=== PATIENT | male | born 1980 | race Two or more races ===

== ENCOUNTER 2021-10-11 18:14 | Emergency (ER) | payer OTHER ==
[~2021-10-11] VITALS: Ht 172.7 cm; Wt 87.1 kg
[2021-10-11] MEDS ORDERED: LOSARTAN-HCTZ1 EAC2 PO (18:26)
== END 2021-10-11 19:14 | disposition home or self-care (01) ==
LOC: ER 18:14
DX: S68.022A Partial traumatic metacarpophalangeal amputation of left thumb, initial encounter (principal); W26.0XXA Contact with knife, initial encounter; Y93.9 Activity, unspecified; Y92.9 Unspecified place or not applicable; Y99.9 Unspecified external cause status

== ENCOUNTER 2023-10-31 13:07 | Emergency (ER) | payer OTHER ==
[~2023-10-31] VITALS: Ht 172.7 cm; Wt 93.0 kg
[~2023-10-31 13:07] MED LIST: LOSARTAN-HCTZ1 EAC2 PO
[2023-10-31] MEDS ORDERED: ASPIRIN 325 MG TABLET.EC PO ONE (13:45)
[2023-10-31 14:01] LABS: HEMOGLOBIN 16.9 g/dL (13-16.00); MEAN CELL VOLUME 83.3 fL (80.0-100.00); MEAN CORPUSCULAR HEMOGLOBIN 28.7 pg (27.00-32.0); MEAN CORPUSCULAR HGB CONC 34.4 g/dl (32.0-36.0); PLATELET COUNT 292 K/uL (150-450); RED BLOOD COUNT 5.89 M/uL (4.00-6.00); RED CELL DISTRIBUTION WIDTH 14.4 % (11.5-14.5)
[2023-10-31 14:24] LABS: INR 1.11; PARTIAL THROMBOPLASTIN TIME 21.5 SECONDS (22.0-34.0); PROTHROMBIN TIME 11.6 SECONDS (9.0-11.5)
[2023-10-31 14:35] LABS: ALBUMIN 4.4 gm/dL (3.4-5.0); CALCIUM 9.4 mg/dL (8.5-10.1); CREATININE SERUM 0.96 mg/dL (0.70-1.30); GFR 85.09; GLOBULINA 3.5 G/DL (2.4-3.5); POTASSIUM 3.74 mEq/L (3.5-5.1); TOTAL PROTEIN 7.9 gm/dL (6.4-8.2)
[2023-10-31 14:49] LABS: ABG PH 7.458 (7.35-7.45); ABG PO2 102.9 mmHg (80-100); ABG pCO2 35.3 mmHg (35-45); BICARBONATE 24.4 mmol/l (23-25); SaO2 98.2 %; Tco2 25.5 mmol/l
[2023-10-31 14:50] LABS: allen test SATISFACTORY; o2 21 %; puncture site RADIAL RIGHT
== END 2023-10-31 17:25 | disposition home or self-care (01) ==
LOC: ER 13:08
PROVIDERS: Emergency Medicine
DX: R00.2 Palpitations (principal); R20.0 Anesthesia of skin; I10 Essential (primary) hypertension